=== PATIENT | female | born 1985 | race Asian ===

== ENCOUNTER 2024-10-19 18:37 | Inpatient (IN) | payer BC ==
[2024-10-19] MEDS: LACTATED RINGERS 1,000 ML IV ONE (20:00)
[2024-10-19] MEDS: LACTATED RINGERS 1,000 ML IV SCH (21:00)
[2024-10-19] MEDS ORDERED: TERBUTALINE 1 MG/ML VIAL SQ PRN (21:06)
[2024-10-19] MEDS ORDERED: CARBOPROST TROMETHAMINE 250 MCG/ML 1 ML AMP IM PRN (21:06)
[2024-10-19] MEDS ORDERED: OXYTOCIN 10 UNIT/ML 1 ML VIAL IM PRN (21:06)
[2024-10-19] MEDS ORDERED: METHYLERGONOVINE 0.2 MG/ML 1 ML AMP IM PRN (21:06)
[2024-10-19] MEDS ORDERED: TRANEXAMIC 1,000 MG/100ML-NACL 1,000 MG in EMPTY BAG 1 BAG IV PRN (21:06)
[2024-10-19 21:08] LABS: Glucose,Whole Blood 77 mg/dL (70-110)
[2024-10-19 21:20] LABS: Basophils # (A) 0.03 10*3/uL (0.00-0.10); Basophils % (A) 0.3 %; Eosinophils # (A) 0.08 10*3/uL (0.04-0.35); Eosinophils % (A) 0.9 %; HCT 39.2 % (37.2-46.3); HGB 13.5 g/dL (12.0-15.0); Lymphocytes # (A) 1.26 10*3/uL (0.90-5.00); Lymphocytes % (A) 14.4 %; MCH 33.2 pg (27.0-32.0); MCHC 34.4 g/dL (32.0-37.0); MCV 96.3 fL (80.0-97.0); Monocytes # (A) 0.64 10*3/uL (0.20-1.00); Monocytes % (A) 7.3 %; Neutrophils # (A) 6.75 10*3/uL (1.80-7.70); Neutrophils % (A) 76.9 %; Platelet Count 225 10*3/uL (140-440); RBC 4.07 10*6/uL (4.10-5.20); RDW 12.2 % (11.5-14.5); WBC 8.78 10*3/uL (4.50-10.00)
[2024-10-19 21:27] VITALS: RESP 16
[2024-10-19] MEDS ORDERED: ROPIVACAINE 5 MG/ML 30 ML VIAL ONE (22:36)
[2024-10-19] MEDS ORDERED: fentaNYL (PF) 50 MCG/ML 5 ML AMP ONE (22:36)
[2024-10-19] MEDS ORDERED: SODIUM CHLORIDE 0.9% 250 ML BAG ONE (22:36)
[2024-10-20] MEDS: OXYTOCIN 30 UNITS/500 ML NS 30 UNIT in SALINE 1 500ML.BAG IV SCH (10:41)
[2024-10-20] MEDS: LIDOCAINE 0.5% (PF) 5 MG/ML (50 ML SDV) SQ PRN (10:43)
[2024-10-20] MEDS ORDERED: diphenhydrAMINE 50 MG/ML 1 ML VIAL IVP PRN ×2 (11:08)
[2024-10-20] MEDS ORDERED: HYDROCORTISONE 2.5% RECTAL CREAM 30 GM TUBE RECTAL PRN (11:08)
[2024-10-20] MEDS ORDERED: ZOLPIDEM 5 MG TAB PO PRN (11:08)
[2024-10-20] MEDS ORDERED: diphenhydrAMINE 25 MG CAP PO PRN (11:08)
[2024-10-20] MEDS ORDERED: SIMETHICONE 80 MG CHEWABLE PO PRN (11:08)
[2024-10-20] MEDS ORDERED: LANOLIN CREAM 1 GM TUBE TOPICAL PRN (11:08)
[2024-10-20] MEDS ORDERED: BENZOCAINE/MENTHOL SPRAY 1 GM/SPRAY AEROSOL TOPICAL PRN (11:08)
--- NOTE | 2024-10-20 11:08 | P.HPOB ---
History of Present Illness H&P Date: 10/20/24 Chief Complaint: 38-0/7 weeks, early labor The patient is a 39-year-old 2 para 0-0-1-0 admitted at 38-0/7 weeks as established by last menstrual period and confirmed by 13-week ultrasound. She is admitted in early active labor with all signs reassuring, category 1 heart rate tracing. Her was complicated by gestational diabetes with good diet control and reactive/reassuring testing on a weekly basis from 32 weeks. She additionally falls into the category of advanced maternal age and had negative or normal fraction testing for chromosomal abnormalities. Group B strep status is negative. Obstetrical history: 2 para 0-0-1-0 with current statistics listed in history of present illness. EDC of 11/03/2024 was established by last menstrual period and confirmed by 13-week ultrasound. Laboratory workup demonst rates a blood type of B+ with a negative antibody screen. Rubella status is immune. The remainder of the laboratory workup was within normal limits though the patient is hepatitis B nonimmune. fraction testing was normal. 1 hour Glucola was elevated and a followed by an abnormal 3-hour glucose tolerance test making the diagnosis of gestational diabetes. Group B strep status is negative. Gynecologic history: Unremarkable with no history of any infections to include STDs. Review of Systems Review of systems is confined to history of present illness. Past Medical History Past Medical History: No Reported History History of Any Multi-Drug Resistant Organisms: None Reported Past Surgical History: No Surgical Hx Reported Additional Past Surgical History / Comment(s): wisdom Past Anesthesia/Blood Transfusion Reactions: No Reported Reaction Smoking Status: Never smoker Medications and Allergies Home Medications Medication Instructions Recorded Confirmed Type Aspirin [Adult Low Dose Aspirin EC] 1 tab PO ONCE 10/19/24 10/19/24 History Vit No.179/Iron/Folic 1 tab PO ONCE 10/19/24 10/19/24 History [ Tablet] Allergies Allergy/AdvReac Type Severity Reaction Status Date / Time No Known Allergies Allergy Verified 10/19/24 18:46 Exam Vital Signs Temp Pulse Resp BP Pulse Ox 10/19/24 20:00 97.8 F 73 16 143/68 100 10/19/24 19:51 97.8 F 75 16 158/78 100 Intake and Output 10/19/24 10/20/24 10/20/24 22:59 06:59 14:59 Other: # Voids 2 Weight 72.575 kg In general, this is a well-developed, well-nourished [place] woman in no acute distress. Her heart has a regular rhythm and rate without murmur. Her lungs are clear to auscultation bilaterally in all sharma. Her abdomen is gravid, nondistended, has normal active bowel sounds, soft, nontender, and without any palpable masses aside from the uterine fundus. Her extremities are without any cyanosis, clubbing, or edema and are nontender to palpation bilaterally. At my first check, the patient is found to be dilated to a rim around the entire cervix, 90% effaced, with the vertex and presentation at approximately 0 to -1 station. Artificial rupture of membranes is carried out demonstrating meconium stained fluid. Results Result Diagrams: 10/19/24 20:06 Abnormal Lab Results - Last 24 Hours (Table) 10/19/24 Range/Units 20:06 RBC 4.07 L (4.10-5.20) 10*6/uL MCH 33.2 H (27.0-32.0) pg Assessment and Plan (1) Gestational diabetes Current Visit: Yes Status: Acute Code(s): O24.419 - GESTATIONAL DIABETES MELLITUS IN , UNSP CONTROL SNOMED Code(s): 43363565 (2) Active labor at term Current Visit: Yes Status: Acute Code(s): VNB8179 - SNOMED Code(s): 00684613 Plan: The patient was admitted for active management of labor. She had an epidural catheter placed for analgesia. She was to have close maternal and butler rveillance and expectant management was to be practiced. At the time of rupture of membranes, normal spontaneous vaginal delivery is anticipated in the near future.
--- NOTE | 2024-10-20 11:14 | P.PROBDLV ---
Vaginal Delivery Note - . Vaginal Delivery Note: The patient is a 39-year-old 2 para 0-0-1-0 admitted at 38-0/7 weeks by good dating parameters. She is admitted in early labor with all signs reassuring, category 1 heart rate tracing. She does fall into the category of advanced maternal age and had negative fraction testing. She additionally was diagnosed with gestational diabetes and had reassuring testing on a weekly basis after 32 weeks. Group B strep status is negative. On labor and delivery, she made steady progress through the night, had an epidural catheter placed in the active phase of labor, and was found at my first check this morning to be dilated to a rim. She underwent artificial rupture of membranes of a forebag demonstrating moderate meconium stained fluid. She pushed over the course of approximately 1-1/2 hours to a normal spontaneous vaginal delivery of a viable 7 pound 7 ounce baby boy with Apgars of 9 at 1 minute and 9 at 5 minutes. The placenta was delivered spontaneously, intact, and grossly normal with a grossly normal, centrally inserted three-vessel cord. There was a small to average size second-degree midline perineal laceration which was noted and repaired in standard fashion using 3-0 chromic catgut without difficulty. Estimated blood loss for the case was approximately 200 mL. There were no complications. All sponge, instrument, and needle counts were correct. Both mother and are resting comfortably in recovery.
[2024-10-20] MEDS: ONDANSETRON 4 MG/2 ML VIAL IVP PRN (11:41)
[2024-10-20] MEDS: IBUPROFEN 800 MG TAB PO PRN (13:23)
[2024-10-20] MEDS: LACTATED RINGERS 1,000 ML IV SCH (15:34)
[2024-10-20] MEDS: ACETAMINOPHEN TAB 500 MG TAB PO PRN (17:25)
[2024-10-20] MEDS: SENNOSIDES-DOCUSATE SODIUM 1 EACH TAB PO SCH (21:10)
[2024-10-21 05:51] LABS: Basophils # (A) 0.04 10*3/uL (0.00-0.10); Basophils % (A) 0.3 %; Eosinophils # (A) 0.25 10*3/uL (0.04-0.35); Eosinophils % (A) 1.6 %; HCT 31.2 % (37.2-46.3); HGB 10.6 g/dL (12.0-15.0); Lymphocytes # (A) 1.73 10*3/uL (0.90-5.00); Lymphocytes % (A) 11.1 %; MCH 33.1 pg (27.0-32.0); MCHC 34.0 g/dL (32.0-37.0); MCV 97.5 fL (80.0-97.0); Monocytes # (A) 0.99 10*3/uL (0.20-1.00); Monocytes % (A) 6.4 %; Neutrophils # (A) 12.44 10*3/uL (1.80-7.70); Neutrophils % (A) 80.1 %; Platelet Count 164 10*3/uL (140-440); RBC 3.20 10*6/uL (4.10-5.20); RDW 12.4 % (11.5-14.5); WBC 15.52 10*3/uL (4.50-10.00)
[2024-10-21 08:26] VITALS: BP 117/72; PULSE 60; TEMP 97.8
--- NOTE | 2024-10-21 08:53 | P.DS ---
Providers Date of admission: 10/19/24 19:40 Expected date of discharge: 10/21/24 Attending physician: Es Montez MD Primary care physician: Stated None Hospital Course: Ms. Christopher is a 39 year old now PPD#1 s/p without complications. The patient is doing well this morning and had no acute events overnight. She has no complaints this morning. She reports minimal lochia, passing flatus, voiding without difficulty, ambulating, and eating/drinking without nausea or vomiting. Infant doing well at bedside, s/p circumcision. She denies chest pain, shortness of breathing, fevers, or chills overnight. She denies pain or swelling in the legs. restrictions are reviewed with the patient including pelvic rest for 6 weeks. The patient is encouraged to call the office if she experiences any heavy bleeding, foul-smelling discharge, breast complaints, or any if she has any other concerns. She will follow up in the office with 6 weeks for exam. All questions are answered. Patient Condition at Discharge: Good Plan - Discharge Summary New Discharge Prescriptions: New Docusate [Colace] 100 mg PO BID PRN #60 capsule PRN Reason: Constipation Ibuprofen [Motrin] 600 mg PO Q6HR PRN #30 tab PRN Reason: Mild Pain (Scale 1 To 3) No Action Vit No.179/Iron/Folic [ Tablet] 1 tab PO ONCE Aspirin [Adult Low Dose Aspirin EC] 1 tab PO ONCE Discharge Medication List Aspirin [Adult Low Dose Aspirin EC] 1 tab PO ONCE 10/19/24 [History] Vit No.179/Iron/Folic [ Tablet] 1 tab PO ONCE 10/19/24 [History] Docusate [Colace] 100 mg PO BID PRN #60 capsule 10/21/24 [Rx] Ibuprofen [Motrin] 600 mg PO Q6HR PRN #30 tab 10/21/24 [Rx] Follow up Appointment(s)/Referral(s): Es Montez MD [STAFF PHYSICIAN] - 12/02/24 11:30 am Activity/Diet/Wound Care/Special Instructions: Instructions 1. Do not begin any exercise program for 3 weeks. 2. Do not resume sexual relations for 6 weeks or longer if uncomfortable. 3. You may take tub baths or showers at any time. 4. You may use tampons if desired after 6 weeks. 5. Keep any areas repaired with stitches clean and dry. 6. If you are not nursing, wear a good fitting, supportive bra during the day and limit fluid intake for at least 1 week to prevent breast engorgement. 7. Call the office, , within the next week to make appointment for your 6 week checkup if it has not already been made. 8. Report any of the following occurrences to the doctor promptly: a. Heavy, excessive bleeding b. Chills, fever c. Burning or frequency of urination d. Pain or redness and breasts if nursing e. Increasing pain or swelling of vulva (stitches). In addition to the above instructions, the following additional should be followed: 1. No heavy lifting or straining (exercising) until after 6 week checkup. 2. Keep abdominal incision clean and dry: You may wear a dressing if more comfortable. 3. Make office appointment for 2 weeks after delivery date. Discharge Disposition: HOME SELF-CARE
== END 2024-10-21 12:25 | disposition home or self-care (01) | DRG 807 ==
LOC: FBPOP 18:37 → 4FBP 19:40
PROVIDERS: ADMIT Obstetrics & Gynecology; ATTEND Obstetrics & Gynecology
PROC: 0KQM0ZZ Repair Perineum Muscle, Open Approach (ICD-10-PCS; principal; 2024-10-19)
PROC: 10E0XZZ Delivery of Products of Conception, External Approach (ICD-10-PCS; principal; 2024-10-19)
PROC: 10907ZC Drainage of Amniotic Fluid, Therapeutic from Products of Conception, Via Natural or Artificial Opening (ICD-10-PCS; principal; 2024-10-19)
DX: O24.420 Gestational diabetes mellitus in childbirth, diet controlled (principal); O70.1 Second degree perineal laceration during delivery; O77.0 Labor and delivery complicated by meconium in amniotic fluid; Z79.82 Long term (current) use of aspirin; Z3A.38 38 weeks gestation of pregnancy; Z37.0 Single live birth
CPT/HCPCS: 36415; 59025; 85025; 86850; 86900; 86901; 96361; 99213